=== PATIENT | female | born 1960 | race African-American/Black ===

== ENCOUNTER 2022-09-26 16:31 | Outpatient (CLI) | payer OTHER, SELFPAY ==
--- NOTE | ~2022-09-26 | MR_ITS ---
MRI of the left knee Clinical history: Pain Technique: Coronal proton density and proton density-weighted images, sagittal proton-density and T2 fat-sat images, and axial proton-density fat-saturated images were acquired. Findings: Anterior and posterior cruciate ligaments are intact. There is minimal thickening and incre ased signal in the proximal MCL, likely chronic in nature. There is soft tissue edema about the MCL. Lateral collateral ligament complex is intact. Popliteus tendon is intact. There is complex tearing of the posterior horn of the medial meniscus, likely extending into the body segment. No lateral meniscal tear is seen. There is moderate chondral thinning at the medial joint line. Lateral compartment articular cartilage is intact. There is patchy moderate chondromalacia the femoral trochlea, especially centrally and al savi the medial aspect. There is mild chondromalacia patella. Minimal tricompartmental osteophytes are present. Extensor mechanism is intact. Small joint effusion present. No Fleming's cyst. Impression: Complex tearing of the posterior horn of the medial meniscus, likely extending into the body segment. Soft tissue edema about the MCL could be reactive due to underlying medial meniscal tear, versus poss ibility of grade 1 MCL sprain. Correlate with any relevant clinical history. Mild tricompartmental degenerative change, as detailed above. Small joint effusion. Reviewed, dictated and finalized at location . [employer] Impression: Complex tearing of the posterior horn of the medial meniscus, likely extending into the body segment. Soft tissue edema about the MCL could be reactive due to underlying medial meni scal tear, versus possibility of grade 1 MCL sprain. Correlate with any relevan t clinical history. Mild tricompartmental degenerative change, as detailed above. Small joint effusion.
== END 2022-09-26 16:32 ==
PROVIDERS: PCP Family Medicine; Visit Provider Orthopaedic Surgery
DX: M25.462 Effusion, left knee (principal); R60.9 Edema, unspecified; S83.232A Complex tear of medial meniscus, current injury, left knee, initial encounter; T14.90XA Injury, unspecified, initial encounter
CPT/HCPCS: 73721